=== PATIENT | male | born 1965 | race Caucasian/White ===

== ENCOUNTER → 2023-02-16 | Outpatient (CLI) | payer OTHER ==
--- NOTE | 2023-02-16 12:35 | MR ---
EXAMINATION TYPE: MR shoulder LT wo con DATE OF EXAM: 02/16/2023 COMPARISON: X-ray HISTORY: Left shoulder pain, decreased ROM x 2 yrs, no trauma. TECHNIQUE: Multiplanar, multisequence imaging of the left shoulder is performed without contrast. FINDINGS: Rotator Cuff: There is area of abnormal signal insertion of the supraspinatus tendon measuring 9 x 4 mm compatible with a partial tear. Increased to signal throughout the distal 1.2 cm of the tendon is compatible with tendinosis. There is mild increased signal involving the distal subscapularis tendon compatible with mild tendino sis. There is increased signal along the undersurface of the infraspinatus tendon compatible with tendinos is. Acromioclavicular Joint: Hypertrophic arthropathy of the AC joint is minimally rotated. Glenohumeral Joint: No sizable joint effusion. Labrum: The labrum appears grossly intact given limitation of non-arthrogram study. Biceps Tendon: The long head of biceps is in normal location within bicipital groove. Bone marrow signal: Tiny focal area of abnormal signal involving the humeral head likely is related t o post Yassine and reactive. Other: No additional significant abnormality is appreciated. IMPRESSION: 1. AC joint hypertrophic arthropathy with impingement of the rotator cuff. 2. Diffuse tendinopathy of the distal supraspinatus tendon with a partial through thickness tear at t he insertion of the tendon anterior fibers measuring 9 x 4 mm. No retraction. 3. Tendinosis infraspinatus tendon.
== END | disposition home or self-care (01) ==
LOC: RADMRIMAIN 10:26
PROVIDERS: ATTEND Orthopaedic Surgery
DX: M25.812 Other specified joint disorders, left shoulder (principal); M19.012 Primary osteoarthritis, left shoulder; M67.814 Other specified disorders of tendon, left shoulder; M75.112 Incomplete rotator cuff tear or rupture of left shoulder, not specified as traumatic

== ENCOUNTER → 2023-03-08 | Outpatient (CLI) | payer OTHER ==
[2023-03-08 15:24] LABS: Blood Urea Nitrogen 14.8 mg/dL (9.0-27.0); Calcium 9.6 mg/dL (8.7-10.3); Chloride 106 mmol/L (96-109); Glucose 94 mg/dL (70-110); Potassium 4.9 mmol/L (3.5-5.5); Sodium 140 mmol/L (135-145)
[2023-03-08 15:48] LABS: Basophils # (A) 0.05 X 10*3/uL (0.00-0.10); Basophils % (A) 0.9 %; Eosinophils # (A) 0.14 X 10*3/uL (0.04-0.35); Eosinophils % (A) 2.4 %; HCT 43.9 % (39.6-50.0); HGB 14.6 g/dL (13.0-17.0); Lymphocytes # (A) 2.09 X 10*3/uL (0.90-5.00); Lymphocytes % (A) 35.6 %; MCH 28.6 pg (27.0-32.0); MCHC 33.3 g/dL (32.0-37.0); MCV 86.1 FL (80.0-97.0); Mean Platelet Volume 11.7 FL (9.5-12.2); Monocytes # (A) 0.42 X 10*3/uL (0.20-1.00); Monocytes % (A) 7.2 %; NRBC Per 100 WBC 0 X 10*3/uL (0.00-0.01); Neutrophils # (A) 3.15 X 10*3/uL (1.80-7.70); Neutrophils % (A) 53.6 %; Platelet Count 185 X 10*3/uL (140-440); RDW 12.8 % (11.5-14.5); WBC 5.87 X 10*3/uL (4.50-10.00)
== END | disposition home or self-care (01) ==
LOC: LABPAT 09:15
PROVIDERS: ATTEND Orthopaedic Surgery Hand Surgery
DX: Z01.812 Encounter for preprocedural laboratory examination (principal); M18.12 Unilateral primary osteoarthritis of first carpometacarpal joint, left hand
CPT/HCPCS: 36415; 80048; 85025

== ENCOUNTER → 2023-03-29 | Day surgery (SDC) | payer OTHER ==
--- NOTE | 2023-03-28 13:32 | P.HPOR ---
History of Present Illness H&P Date: 03/28/23 Subjective: This is a 57 year old male that presents today for initial evaluation regarding a several year history of progressively worsening left base of the thumb pain with associated pain with any type of pinch or grasping movement of the thumb. He denies any numbness or tingling denies any injury or inciting event. He has tried antiinflammatories for years with no relief. Objective LUE: AIN/PIN/Radial/Ulnar/Median motor intact. Radial/Ulnar/Median SILT. 2+/4 Radial/Ulnar pulses palpated. 5/5 APB, 5/5 FDI. Negative Finkelsteins, positive CMC grind, negative Durkan's compression. Imaging: X-Rays of the left hand 3V taken in office today demonstrate severe thumb CMC arthritis Impression: 1.) Left thumb CMC arthritis, severe. Plan: Diagnosis and treatment options were discussed with the patient. We discussed anti-inflammatories, steroid injections and thumb basal joint arthroplasty. He states he wishes to pursue surgical intervention in the form of a left thumb CMC arthroplasty. Risks and benefits of surgery including bleeding, infection, damage to surrounding tissue, need for further surgery, residual numbness were discussed and the patient wished to go forward with surgery. The patient was agreeable with this plan. CC: Vishnu Mejía M.D. -Shakir Santiago DO Orthopedic Hand/Upper Extremity Surgeon Past Medical History Past Medical History: GERD/Reflux, Hypertension, Osteoarthritis (OA) History of Any Multi-Drug Resistant Organisms: None Reported Past Surgical History: Appendectomy, Tonsillectomy Additional Past Surgical History / Comment(s): Nasal surgery Past Anesthesia/Blood Transfusion Reactions: No Reported Reaction Smoking Status: Former smoker - Past Family History Father Family Medical History: GI Bleed, Liver Disease Additional Family Medical History / Comment(s): from bleeding ulcer/received blood and got hepatitis Mother Family Medical History: Hypertension Medications and Allergies Home Medications Medication Instructions Recorded Confirmed Type Acetaminophen Tab [Tylenol] 325 mg PO Q4-6H PRN 03/23/23 03/23/23 History Naproxen [Naprosyn] 500 mg PO QAM PRN 03/23/23 03/23/23 History amLODIPine BESYLATE 5 mg PO QAM 03/23/23 03/23/23 History Allergies Allergy/AdvReac Type Severity Reaction Status Date / Time No Known Allergies Allergy Verified 03/23/23 08:26 Physical Examination Osteopathic Statement: *. No significant issues noted on an osteopathic structural exam other than those noted in the History and Physical/Consult.
[~2023-03-29] MED LIST: BUPIVACAINE (PF) 0.5% 30 ML VIAL SQ ONE; DEXAMETHASONE SOD PHOSPHATE 4 MG/ML 1 ML VIAL IV ONE; GLYCOPYRROLATE 0.2 MG/ML 2 ML VIAL ONE; KETOROLAC 30 MG/ML 1 ML VIAL ONE; LACTATED RINGERS 1,000 ML IV SCH; LIDOCAINE 1% INJ 10MG/ML (20 ML MDV) ONE; MIDAZOLAM 2 MG/2 ML VIAL ONE; ONDANSETRON 4 MG/2 ML VIAL IVP ONE; PROPOFOL 10 MG/ML 20 ML VIAL IV ONE; ePHEDrine 50 MG/ML 1 ML VIAL ONE; fentaNYL (PF) 50 MCG/ML 2 ML AMP ONE
[2023-03-29 09:03] VITALS: RESP 16
--- NOTE | 2023-03-29 12:43 | P.OP ---
Date of Procedure: 03/29/23 Preoperative Diagnosis: Left thumb CMC arthritis Postoperative Diagnosis: Left thumb CMC arthritis Procedure(s) Performed: Left thumb CMC basilar joint arthroplasty Implants: Arthrex 3.5mm Swivel Lock suture anchor x 2 Anesthesia: regional Surgeon: Shakir Santiago Senior Tableau Developer #1: Nadeem Pruett Estimated Blood Loss (ml): 0 Pathology: none sent Condition: stable Disposition: PACU Description of Procedure: This is a 57 year old male who presents today for a left thumb CMC basal joint arthroplasty after having failed conservative treatment for severe thumb CMC arthritis. Risks and benefits of surgery were discussed with the patient including bleeding, damage to surrounding tissue, infection, need for further surgery as well as risks of anesthesia including pulmonary embolism and even and the patient wished to proceed with surgical intervention. The patients was seen in the pre-operative area by myself. Consent and H&P were completed and updated. The correct extremity was marked in the pre-operative area by myself and all other questions were answered. Patient received a upper extremity nerve block by the department of anesthesia. He then was brought to the operating room by the department of anesthesia. They remained on the portable stretcher and a rolling hand table was brought to the side of the operative extremity. The patient was then drifted off to sleep by the department of anesthesia. A nonsterile tourniquet was then applied to the operative extremity and the left upper extremity was then prepped and draped in normal sterile fashion. Pre-operative time out was performed indicating the correct patient, procedure and laterality. All in the room agreed. Pre-operative antibiotics were given prior to skin incision. The operative extremity was the exsanguinated with an esmarch bandage and the tourniquet was inflated to 250mmHg. Longitudinal incision was made over the left thumb CMC joint with a 15 blade scalpel. Blunt dissection was taken down to subcutaneous tissues with littler scissors taking care to preserve the branches of the superficial radial nerve. Dorsal radial artery was identified proximally in the incision and protected throughout the procedure. Scalpel was then made to incise the thumb CMC joint creating full thickness flaps off of the proximal metacarpal base and trapezium, this plane was further developed with a periosteal elevator. Elevator was then utilized to identify the thumb CMC joint and scaphotrapezial joint. McGlamory elevator was then used to excise the trapezium whole. Guidewire was then introduced down to the laser line at the base of the first metacarpal through the same incision and was over drilled. Another guidewire was then inserted at the radial base of the first metacarpal near the Insertion of APL and was then over drilled with normal drill guide. A 3.5mm Arthrex SwiveLock anchor was then inserted into the base of the first metacarpal. While holding the thumb in slight traction and full adduction, another 3.5mm Arthrex SwiveLock anchor was inserted into the base of the second metacarpal and the two strands of fibertape were centered across the first metacarpal base to create a sling around the base suspending the thumb metacarpal, good luciano purchase was appreciated. The thumb was successfully suspended and full ROM was achieved passively. Suture ends were cut and skin was closed with several interrupted 4-0 Monocryl sutures followed by a running 4-0 Monocryl stitch. Sterile dressing consisting of steri strips followed by 4x4s cast padding, and a thumb spica plaster splint was applied. Tourniquet was let down and the hand had brisk cap refill and normal perfusion immediately. The patient was then woken by the department of anesthesia and transferred to PACU in stable condition. Nadeem GREER was present for the case and assisted in major portions of procedure and protection of vital neurovascular structures. Shakir Santiago D.O. Orthopedic Hand/Upper Extremity Surgeon
[2023-03-29 12:53] VITALS: TEMP 97
[2023-03-29] MEDS: HYDROmorphone 0.5 MG/0.5 ML SYRINGE IVP PRN ×2 (12:55→13:09)
[2023-03-29 14:20] VITALS: BP 109/70; PULSE 72
== END | disposition home or self-care (01) ==
LOC: OR 08:12
PROVIDERS: ATTEND Orthopaedic Surgery Hand Surgery
DX: M18.12 Unilateral primary osteoarthritis of first carpometacarpal joint, left hand (principal); K21.9 Gastro-esophageal reflux disease without esophagitis; I10 Essential (primary) hypertension; Z87.891 Personal history of nicotine dependence; Z79.899 Other long term (current) drug therapy
CPT/HCPCS: 25447; J1100; J0690; J2405; J1170; J0665

== ENCOUNTER → 2023-05-03 | Outpatient (CLI) | payer OTHER ==
[2023-05-03 17:31] LABS: Basophils # (A) 0.03 X 10*3/uL (0.00-0.10); Basophils % (A) 0.6 %; Eosinophils # (A) 0.08 X 10*3/uL (0.04-0.35); Eosinophils % (A) 1.5 %; HCT 42.3 % (39.6-50.0); HGB 14.5 g/dL (13.0-17.0); Lymphocytes % (A) 33.2 %; MCH 29.3 pg (27.0-32.0); MCHC 34.3 g/dL (32.0-37.0); MCV 85.5 FL (80.0-97.0); Mean Platelet Volume 11.5 FL (9.5-12.2); Monocytes # (A) 0.35 X 10*3/uL (0.20-1.00); Monocytes % (A) 6.5 %; NRBC Per 100 WBC 0 X 10*3/uL (0.00-0.01); Neutrophils # (A) 3.15 X 10*3/uL (1.80-7.70); Platelet Count 175 X 10*3/uL (140-440); RBC 4.95 X 10*6/uL (4.40-5.60); RDW 12.6 % (11.5-14.5); WBC 5.42 X 10*3/uL (4.50-10.00)
[2023-05-03 18:05] LABS: Calcium 9.9 mg/dL (8.7-10.3); Carbon Dioxide 22.3 mmol/L (21.6-31.8); Chloride 106 mmol/L (96-109); Glucose 111 mg/dL (70-110); Potassium 4.3 mmol/L (3.5-5.5); Sodium 140 mmol/L (135-145)
== END | disposition home or self-care (01) ==
LOC: LABPAT 09:20
PROVIDERS: ATTEND Orthopaedic Surgery
DX: Z01.812 Encounter for preprocedural laboratory examination (principal); M75.42 Impingement syndrome of left shoulder
CPT/HCPCS: 36415; 80048; 85025

== ENCOUNTER 2023-05-12 06:40 | Day surgery (SDC) | payer OTHER ==
--- NOTE | 2023-05-11 08:33 | P.HPOR ---
History of Present Illness H&P Date: 05/11/23 Chief Complaint: Left shoulder pain The patient is a 57-year-old male who presents with a several year history of left shoulder pain is worsening over the past year. He is having pain with overhead activity and at night. He's tried medications along with home exercises without much relief of his symptoms. He notes daily pain that limits him. Review of Systems Negative except as in HPI Past Medical History Past Medical History: GERD/Reflux, Hypertension, Osteoarthritis (OA) History of Any Multi-Drug Resistant Organisms: None Reported Past Surgical History: Appendectomy, Orthopedic Surgery, Tonsillectomy Additional Past Surgical History / Comment(s): nasal surgery, left thumb basilar joint arthroplasty 03-29-23 Past Anesthesia/Blood Transfusion Reactions: No Reported Reaction Smoking Status: Former smoker - Past Family History Father Family Medical History: GI Bleed, Liver Disease Additional Family Medical History / Comment(s): from bleeding ulcer/received blood & got hepatitis Medications and Allergies Home Medications Medication Instructions Recorded Confirmed Type Naproxen [Naprosyn] 500 mg PO QAM PRN 03/23/23 05/08/23 History amLODIPine BESYLATE 5 mg PO QAM 03/23/23 05/08/23 History Allergies Allergy/AdvReac Type Severity Reaction Status Date / Time No Known Allergies Allergy Verified 05/08/23 14:46 Physical Examination - Shoulder left Tenderness with palpation: anterior, bicipital groove Pain: with abduction, with forward flexion ROM: forward flexion: 160 degrees ROM: internal rotation: lower lumbar ROM: external rotation: 60 degrees Crepitus with motion: Yes Strength: abduction: 4/5 Strength: external rotation: 5/5 Tests: internal impingement tests: positive, external impingment tests: positive Results Patient is a well-developed well-nourished male approximately 5 foot 11, 215 pounds of mesomorphic habitus. HEENT exam is nonfocal, neck supple. He's tender about the left shoulder over the acromioclavicular joint and the anterior subacromial space. Moderate subacromial crepitus is noted. Impingement test, Neer test are positive. His distal neurovascular appears intact in the left upper extremity. - Diagnostic results Shoulder MRI: image reviewed (MRI of the left shoulder shows evidence of a rotator cuff tear involving the anterior supraspinatus. Significant acromioclavicular joint arthritis is noted.) Assessment and Plan Assessment: Left shoulder impingement with symptomatic rotator cuff tear Left acromioclavicular joint arthritis Plan: I talked to the patient at length regarding his condition along with treatment options. At this point is quite symptomatic having pain and weakness despite attempted conservative measures. After a thorough discussion he opts to proceed with surgery. We will plan to proceed with left shoulder arthroscopy with probable subacromial decompression, distal clavicular resection, and rotator cuff repair. Risks and benefits were discussed at length in layman's terms. We will likely perform as an outpatient procedure.
[~2023-05-12 06:40] MED LIST changes: -BUPIVACAINE (PF) 0.5% 30 ML VIAL SQ ONE; -DEXAMETHASONE SOD PHOSPHATE 4 MG/ML 1 ML VIAL IV ONE; -GLYCOPYRROLATE 0.2 MG/ML 2 ML VIAL ONE; -KETOROLAC 30 MG/ML 1 ML VIAL ONE; -LACTATED RINGERS 1,000 ML IV SCH; -LIDOCAINE 1% INJ 10MG/ML (20 ML MDV) ONE; -MIDAZOLAM 2 MG/2 ML VIAL ONE; -ONDANSETRON 4 MG/2 ML VIAL IVP ONE; -PROPOFOL 10 MG/ML 20 ML VIAL IV ONE; +SCOPOLAMINE 1 MG/72 HR PATCH TRANSDERM ONE; -ePHEDrine 50 MG/ML 1 ML VIAL ONE; -fentaNYL (PF) 50 MCG/ML 2 ML AMP ONE
[2023-05-12] MEDS ORDERED: MIDAZOLAM 2 MG/2 ML VIAL IV PRN (07:00)
[2023-05-12] MEDS: DEXAMETHASONE SOD PHOSPHATE 4 MG/ML 1 ML VIAL IV ONE (08:02)
[2023-05-12] MEDS: LACTATED RINGERS 1,000 ML IV SCH (08:02)
[2023-05-12] MEDS: ONDANSETRON 4 MG/2 ML VIAL IVP ONE (08:03)
[2023-05-12] MEDS ORDERED: MIDAZOLAM 2 MG/2 ML VIAL ONE (08:51)
[2023-05-12] MEDS ORDERED: NEOSTIGMINE 1 MG/ML 10 ML VIAL ONE (08:51)
[2023-05-12] MEDS ORDERED: PHENYLEPHRINE-0.9% NACL SYG 1,000 MCG/10 ML SYRINGE ONE (08:51)
[2023-05-12] MEDS ORDERED: HYDROmorphone (PF) 1 MG/ML ONE (08:51)
[2023-05-12] MEDS ORDERED: ROCURONIUM 10 MG/ML (5 ML VIAL) IV ONE (08:51)
[2023-05-12] MEDS ORDERED: LIDOCAINE 1% INJ 10MG/ML (20 ML MDV) ONE (08:51)
[2023-05-12] MEDS ORDERED: GLYCOPYRROLATE 0.2 MG/ML 2 ML VIAL ONE (08:51)
[2023-05-12] MEDS ORDERED: fentaNYL (PF) 50 MCG/ML 2 ML AMP ONE (08:51)
[2023-05-12] MEDS ORDERED: KETOROLAC 15 MG/ML 1 ML VIAL ONE (08:51)
[2023-05-12] MEDS ORDERED: PROPOFOL 10 MG/ML 20 ML VIAL IV ONE (08:51)
[2023-05-12] MEDS ORDERED: WATER FOR INJECTION, STERILE 10 ML VIAL IV ONE (08:51)
[2023-05-12] MEDS ORDERED: SUCCINYLCHOLINE CHLORIDE 200 MG/10 ML VIAL IV ONE (08:51)
[2023-05-12] MEDS ORDERED: ePHEDrine 50 MG/ML 1 ML VIAL ONE (08:51)
[2023-05-12] MEDS: EPINEPHrine (PF) 1 ML in SODIUM CHLORIDE 0.9% IRRIGATIO 3,000 ML IRRIGATION ONE ×3 (10:14→10:16)
--- NOTE | 2023-05-12 10:44 | P.OP ---
Date of Procedure: 05/12/23 Preoperative Diagnosis: Left shoulder impingement/rotator cuff tear/acromioclavicular joint arthritis Postoperative Diagnosis: Same, 3 cm rotator cuff tear Procedure(s) Performed: Left shoulder arthroscopic subacromial decompression/distal clavicular resec tion/rotator cuff repair Implants: Arthrex 4.75 mm swivel lock anchor 4 Anesthesia: CHARISSAA Surgeon: Abrahan Whatley Tag Maker #1: Nadeem Pruett Estimated Blood Loss (ml): 10 Pathology: none sent Condition: stable Disposition: PACU Indications for Procedure: The patient's a 57-year-old male who presents after previous injury to his left shoulder with persistent pain and weakness. A discussion of the risks and benefits of operative intervention versus continued conservative measures was made with patient. He opted to proceed with surgery. Operative risks to include infection, neurovascular injury, development of blood clots, possible tendon rerupture, possible postoperative stiffness, and possible need for subsequent procedures was discussed. Informed consent was obtained. Operative Findings: As below Description of Procedure: The patient was brought to the operating room, and after induction of general anesthesia was placed in a beachchair position. A preoperative interscalene block was placed for postoperative analgesia. I examined the left shoulder. There was no gross block to passive motion or gross glenohumeral instability. The left upper extremity was prepped and draped in normal fashion. The bony outlines the acromion, distal clavicle, and coracoid process were outlined with a skin marker. The glenohumeral joint was inflated with 50 mL of saline utilizing a spinal needle from posterior approach. A posterior portal was made through a 5 mm skin incision 1 cm medial and inferior to the posterior lateral border time. A blunt trocar was used to easily into the joint. Diagnostic arthroscopy was performed. An anterior portal was made just lateral to the coracoid process entering the joint above the subscapularis tendon. The subscapularis tendon appeared to be intact. Anterior labrum was intact. The inferior recess was inspected. The posterior labrum was intact. The biceps and its anchor appear to be intact and were stable. On inspection the rotator cuff, a full-thickness tear involving the supraspinatus was noted with mild retraction.. The arthroscope was then placed into the subacromial space. A lateral portal was made 2 centimeters inferior to the anterior lateral border of the acromion. The rotator cuff was then mobilized. This was then easily brought back to the greater tuberosity. The soft tissue on the undersurface of the acromion was debrided with a motorized shaver and electrocautery clearly defining the anterior medial and lateral borders as well as the distal clavicle. An anterior inferior acromioplasty was performed with a motorized harshil starting anterolateral, then extending this posteriorly, then extending this medially. I converted to a flat acromion and this was verified in the posterior and lateral viewing portals. The distal 8 mm of the clavicle was resected with a motorized bur. The greater tuberosity was lightly decorticating with a shaver down to a bleeding bony surface. An accessory superior lateral portals made just off the lateral edge of the acromion for anchor placement. 2 anchors were then placed just off the articular surface with the appropriate starting awl. 4.75 mm anchors preloaded with #2 fiber tape were placed. Good purchase was obtained. These fiber tapes were then passed the rotator cuff with a scorpion suture passer. A lateral row was created crisscrossing these tapes. 5.5 mm swivel lock anchors x2 were placed laterally. Good purchase was obtained. Final arthroscopic view showed adequate compression at the footprint. The arthroscope was then removed. The portals were closed with simple 3-0 nylon sutures. A sterile dressing was applied in addition to an abductor brace. The patient was then awoken from general anesthesia and transferred to recovery room in good condition. Blood loss was estimated at 10 mL. No complications were incurred. Sponge and needle counts were correct in the case. Nadeem GREER assisted and the major components of the case to include arm positioning, anchor placement, and rotator cuff repair.
[2023-05-12 11:14] VITALS: TEMP 97.7
[2023-05-12] MEDS: HYDROmorphone 0.5 MG/0.5 ML SYRINGE IVP PRN (11:45)
[2023-05-12] MEDS: HYDROcodone/APAP 7.5-325MG 1 EACH TAB PO ONE (12:23)
[2023-05-12] MEDS ORDERED: HYDROcodone/APAP 7.5-325MG 1 EACH TAB ONE (12:23)
[2023-05-12 13:10] VITALS: BP 138/81; PULSE 91; RESP 17
== END 2023-05-12 13:03 | disposition home or self-care (01) ==
LOC: OR 06:40
PROVIDERS: ATTEND Orthopaedic Surgery
DX: M19.012 Primary osteoarthritis, left shoulder (principal); M75.42 Impingement syndrome of left shoulder; M75.102 Unspecified rotator cuff tear or rupture of left shoulder, not specified as traumatic; I10 Essential (primary) hypertension; K21.9 Gastro-esophageal reflux disease without esophagitis; Z87.891 Personal history of nicotine dependence; Z79.1 Long term (current) use of non-steroidal anti-inflammatories (NSAID); Z79.899 Other long term (current) drug therapy
CPT/HCPCS: 29824; 29826; 29827; C1713 ×2; C1894; J2250; J0330; J1100; J2710; J0690; J2405; J0171; J2001; J3010; J1170 ×2; J1885; J2704; J2371

== ENCOUNTER → 2023-08-07 | Outpatient (CLI) | payer OTHER ==
--- NOTE | 2023-08-08 | MR ---
EXAMINATION TYPE: MR shoulder LT wo con DATE OF EXAM: 08/07/2023 COMPARISON: MRI left shoulder 02/16/2023. Outside left shoulder x-ray 07/17/2023. HISTORY: Prior on synapse, left shoulder pain for 2 months, decrease ROM, history of sx 05/28/23, tend on repair, bone spur, no CA TECHNIQUE: Multiplanar, multisequence imaging of the left shoulder is performed without contrast. FINDINGS: Rotator Cuff: There is new artifact from surgical repair at the humeral head level. Some increased si gnal in the distal supraspinatus and to lesser degree infraspinatus tendons. No new retracted tear is identified. Heterogeneous increased signal redemonstrated with more prominent surrounding fluid of t he subscapularis tendon is noted. Acromioclavicular Joint: Moderate capsular hypertrophy and mild to moderate narrowing with mild spurr ing is redemonstrated. Glenohumeral Joint: Small to moderate-sized joint effusion remains present. No significant spurring. Narrowing is again seen. Labrum: The labrum appears grossly intact given limitation of non-arthrogram study. Biceps Tendon: The long head of biceps is in normal location within bicipital groove. Bone marrow signal: Tiny subchondral cyst posteriorly is redemonstrated in the humeral head. Other: No additional significant abnormality is appreciated. IMPRESSION: 1. Successful interval repair of the partial tear of the distal supraspinatus tendon. Tendinosis invo lving the rotator cuff remains present. No new tear is seen.
== END | disposition home or self-care (01) ==
LOC: RADMRIMAIN 09:15
PROVIDERS: ATTEND Orthopaedic Surgery
DX: M75.112 Incomplete rotator cuff tear or rupture of left shoulder, not specified as traumatic (principal); M67.814 Other specified disorders of tendon, left shoulder

== ENCOUNTER 2024-02-12 14:28 | Day surgery (SDC) | payer OTHER ==
[~2024-02-12 14:28] MED LIST changes: +MIDAZOLAM 2 MG/2 ML VIAL IV PRN; +Pre Op ABX Message 1 EACH MISC MISCELLANE ONE; -SCOPOLAMINE 1 MG/72 HR PATCH TRANSDERM ONE
[2024-02-12 14:50] VITALS: TEMP 97.7
[2024-02-12] MEDS: LACTATED RINGERS 1,000 ML IV SCH (14:55)
[2024-02-12] MEDS: IV FLUID CONTINUATION 1,000 ML IV ONE (14:55)
[2024-02-12] MEDS: DEXAMETHASONE SOD PHOSPHATE 4 MG/ML 1 ML VIAL IV ONE (14:56)
[2024-02-12] MEDS: ONDANSETRON 4 MG/2 ML VIAL IVP ONE (14:57)
[2024-02-12] MEDS: SCOPOLAMINE 1 MG/72 HR PATCH TRANSDERM ONE (14:57)
[2024-02-12] MEDS ORDERED: fentaNYL (PF) 50 MCG/ML 2 ML AMP ONE (16:23)
[2024-02-12] MEDS ORDERED: MIDAZOLAM 2 MG/2 ML VIAL ONE (16:23)
[2024-02-12] MEDS ORDERED: GLYCOPYRROLATE 0.2 MG/ML 2 ML VIAL ONE (16:23)
[2024-02-12] MEDS ORDERED: KETOROLAC 15 MG/ML 1 ML VIAL ONE (16:23)
[2024-02-12] MEDS ORDERED: HYDROmorphone (PF) 1 MG/ML ONE (16:23)
[2024-02-12] MEDS ORDERED: LIDOCAINE 1% INJ 10MG/ML (20 ML MDV) ONE (16:23)
[2024-02-12] MEDS ORDERED: PROPOFOL 10 MG/ML 20 ML VIAL IV ONE (16:23)
[2024-02-12] MEDS ORDERED: ePHEDrine 50 MG/ML 1 ML VIAL ONE (16:23)
[2024-02-12] MEDS ORDERED: ceFAZolin 1 GM/50 ML BAG (PMX) ONE (16:23)
[2024-02-12] MEDS: SODIUM CHLORIDE 0.9% 100 ML with ceFAZolin 2,000 MG IV ONE (16:28)
[2024-02-12] MEDS: BUPIVACAINE (PF) 0.25% 30 ML VIAL SQ ONE ×2 (16:57→18:25)
[2024-02-12] MEDS: LACTATED RINGERS 1,000 ML IV ONE (17:45)
[2024-02-12 18:47] VITALS: RESP 16
--- NOTE | 2024-02-12 19:02 | P.OP ---
Date of Procedure: 02/12/24 Preoperative Diagnosis: Right thumb CMC osteoarthritis Postoperative Diagnosis: Same Procedure(s) Performed: Right thumb CMC arthroplasty Implants: None Anesthesia: CHARISSAA Surgeon: Heri Sutton Estimated Blood Loss (ml): 10 Pathology: none sent Condition: stable Disposition: PACU Indications for Procedure: Symptomatic right thumb CMC osteoarthritis that did not respond to conservative measures Operative Findings: Significant right thumb CMC osteoarthritis, there was no significant ST arthritis noted after trapezial resection Description of Procedure: Patient was brought back to the operating room on a stretcher he was placed in the supine position and the right arm was placed on an armboard general anesthesia was administered per the anesthesia team, a well-padded tourniquet was applied to the right upper arm this was inflated just prior to incision and was deflated once the dressings were applied. The right upper extremity was prepped and draped in the normal sterile fashion a Gaspar type incision was marked out along the base of the thumb dissection was carried down taking care to protect any sensory nerve branches in the field a capsulotomy was performed and the trapezium was removed in a piecemeal fashion taking care to protect the dorsal branch of the radial artery as well as the FCR tendon imaging was used to confirm the correct location of our incision and correct plan of resection of the trapezium. Additionally imaging was utilized to ensure no residual osteophytes or small bone fragments remained at the articulation between the first and second metacarpal bases. Once the trapezium was completely excised the wound was irrigated to again remove any small bone fragments, at this point a nonabsorbable suture was utilized to suture the APL and FCR tendons together forming a support sling beneath the base of the thumb metacarpal. Imaging was used to confirm appropriate suspension of the thumb metacarpal as well as no subluxation with stress of the thumb. The capsule was then closed with Vicryl suture and the skin closed with Prolene suture. All dressings and a thumb spica splint were then applied. Patient tolerated the procedure well and was taken to the recovery area in stable condition Plan - Discharge Summary New Discharge Prescriptions: No Action Naproxen [Naprosyn] 500 mg PO QAM PRN PRN Reason: Pain Ibuprofen 600 mg PO Q8H #32 tab amLODIPine BESYLATE 5 mg PO QAM Discharge Medication List Naproxen [Naprosyn] 500 mg PO QAM PRN 03/23/23 [History] amLODIPine BESYLATE 5 mg PO QAM 03/23/23 [History] Ibuprofen 600 mg PO Q8H #32 tab 05/12/23 [Rx] Follow up Appointment(s)/Referral(s): Heri Sutton MD [STAFF PHYSICIAN] - 2 Weeks Patient Instructions/Handouts: *Surgery [facility] - Scopalamine Patch Instructions Activity/Diet/Wound Care/Special Instructions: Non weight bearing to right hand keep dressings in place until your follow up visit avoid lifting objects with your right hand You may begin to move your fingers other than your thumb once pain is to a manageable level, a handout has been provided with hand motion exercises ICE and elevation of the hand/wrist to the level of the heart as often as possible to decrease pain and swelling Ice for 20 min at a time as often as possible throughout the day Numbing medication was injected during your procedure, this will wear off by tomorrow A prescription pain medication has been provided for you, please follow prescription instructions Your pain medication is designed to provided you with reduction in your pain level, the medication will not eliminate ALL of your pain, the goal is to have you at a manageable pain level such that you can sleep and perform necessary daily functions Additionally you may take tylenol for relief of more minor pain A small amount of drainage or blood on your dressings is normal Please contact our office If you experience any new onset of numbness or tingling after your numbing medications wears off, your pain is uncontrolled with your current medications, you notice any pale or bluish discoloration of your fingers, large amounts of drainage or bleeding on your bandages. Discharge Disposition: HOME SELF-CARE
[2024-02-12] MEDS: HYDROmorphone 0.5 MG/0.5 ML SYRINGE IVP PRN (19:04)
[2024-02-12] MEDS: HYDROcodone/APAP 5-325MG 1 EACH TAB PO STA (19:34)
[2024-02-12 19:58] VITALS: BP 115/67; PULSE 90
== END 2024-02-12 20:10 | disposition home or self-care (01) ==
LOC: OR 14:28
PROVIDERS: ATTEND Orthopaedic Surgery
DX: M18.11 Unilateral primary osteoarthritis of first carpometacarpal joint, right hand (principal); I10 Essential (primary) hypertension; E66.9 Obesity, unspecified; Z87.891 Personal history of nicotine dependence; Z68.32 Body mass index [BMI] 32.0-32.9, adult; Z79.899 Other long term (current) drug therapy
CPT/HCPCS: 25447; J2250; J1100; J2405; J0690 ×2; J2003; J3010; J1171 ×2; J1885; J2704; J0665; J1596